=== PATIENT | female | born 1935 | race Caucasian/White ===

== ENCOUNTER 2020-03-02 02:41 | Observation (INO) | payer MEDICARE, SELFPAY ==
[2020-03-02] VITALS (16 sets, daily range): BP systolic 125–169; BP diastolic 51–93; PULSE 88–111; RESP 14–18; TEMP 36.3–37; O2SAT 95–100; BMI 15.1
--- NOTE | ~2020-03-02 | CT_ITS ---
EXAMINATION: CTA chest PE protocol DATE: 03/02/2020 11:48 LEATHER LEVELER INDICATION: Chest pain TECHNIQUE: Computed tomographic angiography (CTA) of the chest was performed with 100 mL Omnipaque-35 0 intravenous contrast. The dose-length product was 138.31 mGy-cm. Maximum intensity projection 3D-re constructions of the aorta and other arteries were constructed by the technologist on a separate work station. Automated exposure control and iterative reconstruction technique were employed. COMPARISON: Chest x-ray dated 03/02/2020. FINDINGS: Study is technically adequate without evidence for pulmonary embolism. Mildly prominent pul monary arteries. There is atherosclerosis and ectasia of the thoracic aorta without aneurysm or disse ction. There is coronary atherosclerosis. There is a bovine aortic arch. No significant pleural or pe ricardial effusion. No thoracic lymphadenopathy. No endobronchial lesions. No focal airspace consolidation. There is biba silar dependent atelectasis. There are advanced degenerative changes of the thoracic and upper lumbar spine. There is a chronic wedge compression fracture of T12 with erosive change anterior endplate of T12 which may be secondary to degenerative change, although sequela of osteomyelitis-discitis not ex cluded. IMPRESSION: 1. No acute cardiopulmonary disease. No evidence for pulmonary embolism. 2: Chronic wedge compression fracture of T12 with erosive changes at the inferior endplate which may be secondary degenerative change or sequela of previous osteomyelitis-discitis. There is retropulsion of the inferior endplate causing moderate central canal stenosis at this level. Reviewed, dictated and finalized at location A. HER LEVELER IMPRESSION: 1. No acute cardiopulmonary disease. No evidence for pulmonary embolism. 2: Chronic wedge compression fracture of T12 with erosive changes at the inferi or endplate which may be secondary degenerative change or sequela of previous o steomyelitis-discitis. There is retropulsion of the inferior endplate causing m oderate central canal stenosis at this level.
--- NOTE | ~2020-03-02 | XR_ITS ---
XR chest 2V 03/02/2020 03:09 Indication: Chest pain Procedure: AP and lateral views of the chest Comparison: No prior studies for comparison. Findings: Heart size upper normal. There is prominence of the aortic arch. Recommend correlation with CT. There is a burst fracture of T12, likely chronic. No focal air space disease, pulmonary edema, p leural effusion or suspected pneumothorax. Impression: 1: No acute cardiopulmonary disease. 2: Prominence of the aortic arch. Correlation with CT recommended. 2: T12 burst fracture, likely chronic. Reviewed, dictated and finalized at location A. LEAD Impression: 1: No acute cardiopulmonary disease. 2: Prominence of the aortic arch. Correlation with CT recommended. 2: T12 burst fracture, likely chronic.
--- NOTE | 2020-03-02 02:47 | ECG_ITS ---
Measurements Intervals [place] Rate: 88 P: 75 AL: 105 QRS: 69 QRSD: 106 T: 51 QT: 372 QTc: 452 Interpretive Statements SINUS RHYTHM WITH SHORT AL INTERVAL POSSIBLE LEFT ATRIAL ENLARGEMENT INCOMPLETE RIGHT BUNDLE BRANCH BLOCK BASELINE ARTIFACT- I, III, AVL, V3 BORDERLINE ECG Electronically Signed On 03-02-2020 7:28:53 LADLE LINER by Rahul Pandya D.O.
--- NOTE | 2020-03-02 02:55 | ED.CHESTPAIN ---
HPI - Chest Pain General Chief Complaint: Chest Pain Stated Complaint: CP Source: RN notes reviewed History of Present Illness HPI narrative: Patient presents emergency department from home via EMS for chest pain. Patient states she awoke this evening prior to arrival with pain in the midsternal chest. Pain is described as aching in nature and is worse with deep inspiration and movement of the torso she denies any known trauma or injury she denies any fevers or chills shortness of breath abdominal pain nausea vomiting or any other symptoms. She states she took no medication for the symptoms. She states she felt fine prior to going to sleep tonight Review of Systems Review of Systems: Narrative: Gen.: Denies fevers or chills ENT: Denies congestion Respiratory: Denies shortness of breath or cough CV: see HPI GI: Denies abdominal pain nausea, emesis or diarrhea Musculoskeletal: Denies back pain or muscle pain Neuro: Denies numbness, tingling, weakness or focal weakness Skin: Denies rash Except as documented, all other systems reviewed and negative [facility] Past Medical History Medical History (Updated 03/02/20 @ 06:48 by Bronson Diaz DO) Hypertension Social History Social History (Updated 03/02/20 @ 02:56 by Bronson Diaz DO) Smoking status: Never smoker Exam Narrative: Exam Narrative: APPEARANCE: No acute distress, nontoxic, resting in bed EYES: EOMI HEENT: Normocephalic, atraumatic, OMM RESPIRATORY: No respiratory distress Clear to auscultation bilaterally with no rhonchi wheezing or rales. CARDIOVASCULAR: Regular rate and rhythm without murmurs rubs or gallops. Chest: Tender palpation over the lower midsternal chest no swelling ecchymosis or rash ABDOMINAL: Soft, nontender, nondistended, no rebound or guarding Back: No thoracic or lumbar tenderness palpation MUSCULOSKELETAl: Moves all extremities. No clubbing, cyanosis or edema. NEURO: Awake and alert. Following commands, speech normal, no focal deficits SKIN:: Warm, dry. No rashes lesions or abrasions PSYCHIATRIC: Normal affect/mood, Course Course Emergency Course: Following CT scan I did discuss with the patient the erosion of the inferior endplate of T12 on exam the patient has no tenderness palpation she states she does have chronic pain in her lower back has been ongoing for numerous years she denies any acute change patient's only complaint is pain in the anterior chest Patient notes minimal change in pain with Tylenol and GI cocktail Dr. Shin presentation work-up agrees with admission at this time request consult to cardiology Discussed Dr Jimenez presentation work-up agrees with consult at this time Discussed with patient and family results of workup and diagnosis. Discussed need for admission. Patient and family understand and agree to current treatment plan Vital Signs Vital signs: Vital Signs Temperature 98 F 03/02/20 02:39 Pulse Rate 90 03/02/20 02:39 Respiratory Rate 18 03/02/20 02:39 Blood Pressure 146/76 H 03/02/20 02:39 Pulse Oximetry 95 03/02/20 02:39 Temperature 98 F 03/02/20 02:39 Pulse Rate 94 03/02/20 06:09 Respiratory Rate 18 03/02/20 06:09 Blood Pressure 138/74 03/02/20 06:09 Pulse Oximetry 98 03/02/20 06:09 MDM - Chest Pain Lab Data Result diagrams: 03/02/20 03:33 03/02/20 03:33 Labs: Lab Results 03/02/20 03/02/20 03/02/20 Range/Units 03:33 03:33 03:33 WBC 14.9 H (4.5-10.0) K/mm3 RBC 4.39 (4.2-5.4) M/mm3 Hgb 13.3 (12.0-15.0) g/dL Hct 39.6 (37.0-47.0) % MCV 90.2 (80-100) fl MCH 30.3 (26-34) pg MCHC 33.6 (32-36) g/dl RDW 12.8 (11.5-14.5) % Plt Count 307 (150-375) k/mm3 MPV 9.2 (7.4-10.4) fl Immature Gran % (Auto) 0.9 H (0-0.5) % Neut % (Auto) 85.2 H (45.5-73.1) % Lymph % (Auto) 5.3 L (18.3-44.2) % [place] % (Auto) 7.4 (2.6-8.5) % Eos % (Auto) 0.5 (0-4.4) % Baso % (Auto)
[2020-03-02 03:41] LABS: Basophils Absolute Auto 0.1 K/mm3 (0.0-0.1); Basophils Percent Auto 0.7 % (0.2-1.2); Eosinophils Absolute Auto 0.1 K/mm3 (0-0.3); Eosinophils Percent Auto 0.5 % (0-4.4); Hematocrit 39.6 % (37.0-47.0); Hemoglobin 13.3 g/dL (12.0-15.0); Immature Granulocyte Absolute 0.13 K/mm3 (0.00-0.031); Immature Granulocyte Percent A 0.9 % (0-0.5); Lymphocytes Absolute Auto 0.78 K/mm3 (0.9-3.2); Lymphocytes Percent Auto 5.3 % (18.3-44.2); Mean Corpuscular HGB Conc 33.6 g/dl (32-36); Mean Corpuscular Hemoglobin 30.3 pg (26-34); Mean Corpuscular Volume 90.2 fl (80-100); Mean Platelet Volume 9.2 fl (7.4-10.4); Monocytes Absolute Auto 1.1 K/mm3 (0.1-0.6); Monocytes Percent Auto 7.4 % (2.6-8.5); Neutrophils Absolute Auto 12.7 K/mm3 (1.3-6.7); Neutrophils Percent Auto 85.2 % (45.5-73.1); Platelet Count Result 307 k/mm3 (150-375); Red Blood Count 4.39 M/mm3 (4.2-5.4); Red Cell Distribution Width 12.8 % (11.5-14.5); White Blood Count 14.9 K/mm3 (4.5-10.0)
[2020-03-02 03:53] LABS: Alanine Aminotransferase 22 U/L (4-35); Alkaline Phosphatase 54 U/L (38-126); Aspartate Amino Transferase 51 U/L (14-36); Bilirubin,Total 0.4 mg/dL (0.2-1.3); Lipase 128 U/L (23-300)
[2020-03-02 03:56] LABS: INR 1.1; Prothrombin Time 14.7 Seconds (11.1-14.7)
[2020-03-02 03:57] LABS: Partial Thromboplastin Time 31.5 SECONDS (22.3-36.8)
[2020-03-02 03:59] LABS: Anion Gap 8 mmol/L (8-16); Blood Urea Nitrogen 18 mg/dL (7-17); Calcium 8.9 mg/dL (8.4-10.2); Carbon Dioxide 29 mmol/L (22-30); Chloride 97 mmol/L (98-107); Estimated CRCL calculation 31 ml/min; Estimated Glomerular Filt Rate > 60; Glucose 105 mg/dL (65-105); Potassium 3.8 mmol/L (3.4-5.0); Sodium 134 mmol/L (137-145)
[2020-03-02 04:11] LABS: Troponin I < 0.012 ng/mL (0.000-0.034)
--- NOTE | 2020-03-02 04:59 | PC.NURSE ---
Patient to CT
[2020-03-02 06:37] LABS: Troponin I < 0.012 ng/mL (0.000-0.034)
--- NOTE | 2020-03-02 08:33 | ADMGEN ---
This patient, Janice Sanchez, was admitted to IMU Room 205-02. Patient/family oriented to hospital policies and general routines including ID bracelet, bed and alarms, visiting hours, pain management, procedures, bathroom and other care routines, personal items, smoking policy, room service/diet, and visiting hours. Information on how to activate the Rapid Response Team has been discussed. Patient/Family are encouraged to report perceived risks to care and to ask questions if they do not understand what they are told or what they should do.
[2020-03-02 09:24] LABS: Troponin I < 0.012 ng/mL (0.000-0.034)
--- NOTE | 2020-03-02 11:59 | PM.CNCAR ---
Assessment and Plan Assessment and plan (1) Atypical chest pain: Code(s): R07.89 - Other chest pain Status: Acute Assessment and Plan: Her chest pain is pleuritic and reproducible. Very atypical for angina besides trop negative X 3 and her EKG shows no ischemic changes Unclear etiology of chest pain but it could be musculoskeletal. T12 fracture was reported on Xray but appears old. Also AST was elevated so may consider further eval of Gallbladder disease as potential cause of symptoms She had near syncopal episode which probably was vasovagal due to pain but I would go ahead and order 2D echo to rule out structural heart disease in the light of chest pain and near syncope (2) Hypertension: Code(s): I10 - Essential (primary) hypertension Status: Acute Assessment and Plan: Resume Lisinopril (3) Near syncope: Code(s): R55 - Syncope and collapse Status: Acute Assessment and Plan: Likely vasovagal Continue to monitor on tele Check 2D echo History of Present Illness History of Present Illness Consult date/time: 03/02/20 11:59 85 y/o female, well preserved mentally and physically with no known cardiac history and medical history of HTN and arthritis who presents with chest pain She woke up around 2:30 in am to use the bathroom and noted chest pain at the center of chest with no radiation that was worse with deep breathing and moving. By the time she got to the bathroom her pain became more severe and it appears she had what sound like vagal reaction (developed diaphoresis and became dizzy).She felt that she will almost pass out but she did not. It took her ~ 40 minutes to go back to bedroom to get her cellphone and call family who called ambulance. She feels better overall but she has to breath shallow and has to stay still so she does not get the chest pain. When I pressed on her chest wall it was clearly tender to touch. Trop negative X3. EKG shows sinus rhythm and no ST changes. Her labs are notable for mildly elevated AST otherwise unremarkable Chest Xray shows no acute findings. Had old T12 fracture. She had CT angiogram of chest, report is pending but on my personal review no obvious PE She moved to the area about 2 years ago after . She lives by her self but her daughter lives few blocks away. Her only medication at home is Lisinopril. Also takes eye drops. Never smoker Reason For Visit: Chest pain Review of Systems Review of Systems: All systems reviewed & are unremarkable except as noted in HPI and below Constitutional: Constitutional: Denies fatigue and Denies headache(s) Eyes: Eyes: Denies blurry vision ENT: Reports Normal hearing present and Denies headache(s) Cardiovascular: Cardiovascular: Denies chest pain, Denies diaphoresis, Denies pedal edema, Denies leg edema, Denies lightheadedness, Denies palpitations and Denies dyspnea Respiratory: Respiratory: Denies cough and Denies dyspnea Gastrointestinal: Gastrointestinal: Denies abdominal pain Musculoskeletal: Musculoskeletal: Denies back pain Neurologic: Reports Normal hearing present and Denies headache(s) Psychiatric: Psychiatric: Denies anxiety Endocrine: Endocrine: Denies fatigue and Denies palpitations PMFSH Past Medical History Medical History (Updated 03/02/20 @ 12:18 by Annalise Winston MD) Hypertension Social History Social History (Updated 03/02/20 @ 02:56 by Bronson Diaz DO) Smoking status: Never smoker Alcohol intake: never Substance use: never Gender identity (if verbalized by the patient): Female Meds Home Medications and Allergies Home Medications Medication Instructions Recorded Confirmed Type cyclosporine [Restasis] 1 drp OPHTHALMIC (EYE) Q12H 03/02/20 03/02/20 History lisinopril 20 mg PO DAILY 03/02/20 03/02/20 History multivit with min-folic acid 1 tablet PO DAILY 03/02/20 03/02/20 History [Adult One Daily Mult
--- NOTE | 2020-03-02 12:18 | ECHO_ITS ---
Patient Info Name: Janice Sanchez Age: 85 years : 1935 Gender: Female Ht: 66 in Wt: 93 lbs BSA: 1.38 m2 HR: 91 bpm BP: 167 / 75 mmHg Technical Quality: Good Exam Date: 03/02/2020 1:28 PM Exam Location: [facility] Patient Status: Inpatient Admit Date: 03/02/2020 Staff Ordering Physician: Annalise Winston MD (vicky/marilee) Helix Coil Winder: Theresa Polanco RDCS Attending Provider: Sadie Clark PA-C Exam Type: CA echo doppler color flow Study Info Complete two-dimensional, color flow and Doppler transthoracic echocardiogram is performed. Summary 1. Complete two-dimensional, color flow and Doppler transthoracic echocardiogram is performed. 2. Left ventricular chamber dimension is normal. 3. Left ventricular systolic function is normal, estimated at 65-70%. 4. Right atrial chamber dimension is mildly enlarged. 5. The aortic valve is not well visualized but appears likely trileaflet. 6. There is trace aortic valve regurgitation. 7. There is no aortic valve stenosis. 8. The mitral valve has mildly calcified leaflets. 9. There is mild to moderate mitral valve regurgitation. 10. Mild mitral annular calcification. 11. There is moderate tricuspid valve regurgitation. 12. Mild pulmonary hypertension, estimated pulmonary arterial systolic pressure is 40 mmHg. 13. Normal inferior vena cava with >50% collapse upon inspiration. 14. There is no pericardial effusion. Left Ventricle Left ventricular chamber dimension is normal. Left ventricular systolic function is normal, estimated at 65-70%. There is no increased left ventricular wall thickness. Left ventricular septal wall motion is normal. The left ventricular diastolic function is grade I diastolic dysfunction. There is discrete upper septal thickness. Right Ventricle Right ventricular chamber dimension is normal. Right ventricular systolic function is normal. Left Atria Left atrial chamber dimension is normal. Right Atria Right atrial chamber dimension is mildly enlarged. Aortic Valve The aortic valve is not well visualized but appears likely trileaflet. There is mild aortic valve sclerosis. There is no aortic valve stenosis. There is trace aortic valve regurgitation. Pulmonic Valve The pulmonic valve is normal. There is no pulmonic valve stenosis. There is no pulmonic regurgitation. Mitral Valve The mitral valve has mildly calcified leaflets. There is no mitral valve stenosis. There is mild to moderate mitral valve regurgitation. Mild mitral annular calcification. Tricuspid Valve The tricuspid valve leaflets are normal. There is no significant tricuspid valve stenosis. There is moderate tricuspid valve regurgitation. Mild pulmonary hypertension, estimated pulmonary arterial systolic pressure is 40 mmHg. Pericardium/Pleural The pericardium appears normal. There is no pericardial effusion. Inferior Vena Cava Normal inferior vena cava with >50% collapse upon inspiration. Aorta The aortic root size at the sinus of Valsalva is normal. The prox ascending aorta size is normal. Left Ventricular Outflow Tract Name Value Normal LVOT 2D LVOT Diameter 1.5 cm LVOT Doppler -----
[2020-03-02] MEDS: lisinopriL 20 MG TABLET PO (12:39)
[2020-03-02] MEDS: ACETAMINOPHEN 325 MG TABLET 650 MG PO (12:39)
[2020-03-02] MEDS: cycloSPORINE 0.4 ML OPHTH SOLUTION 1 DROP EACH EYE ×2 (12:40→21:51)
--- NOTE | 2020-03-02 13:00 | PCPTNOTE ---
attempted therapy,but pt eating then to have a US test.
--- NOTE | 2020-03-02 13:56 | PCPTNOTE ---
attempted PT eval this afternoon, but pt was still in US test.
--- NOTE | 2020-03-02 14:50 | PM.IMHP ---
H&P: HPI History of Present Illness Date/Time: 03/02/20 14:50 Chief Complaint: Chest pain Narrative: Janice Sanchez is a 85 year old female with history of hypertension, GERD, glaucoma, who presented to the emergency room with substernal chest pain. Patient states last night she was feeling well without any issues. She normally wakes up every 2-4 hours to walk around, use the restroom, and take Aleve for her chronic arthritis pain. She woke up at 12:10 a.m. this morning to go to the bathroom when she noticed a slight discomfort to her mid chest. When she stood up she also felt lightheaded, dizzy and slightly diaphoretic. She also reported increased substernal chest pain with any type of movement and walking. She was able to get to the bathroom and then decided to go into her kitchen to have something to eat thinking she had low blood sugar. On her way to the kitchen she continued to have the chest discomfort and fell into the Fridge. She did not injure any part of the body or hit her head. Then she continued to feel lightheaded with her chest pain reported as excruciating, pressure . She attempted to walk back into her bedroom to grab her phone to call her daughter but it took her about 45 minutes because of her increased pain and symptoms with movement. She denies any syncope, shortness of breath, cough, fever, chills, nausea, vomiting, abdominal pain, belching, diarrhea, leg swelling, calf pain, urinary symptoms, loss of taste or smell, or any other abnormal symptoms. She still reports some substernal chest discomfort and worse with any type of movement. Denies any pain with taking a deep breath, radiation of pain, she does have an exacerbation of pain with pressing on her chest wall. She does report having to fill up her humidifiers throughout her house daily and can become heavy, but denies any other strenuous activity or lifting recently. Denies any sick contacts. Initial vitals showed afebrile, heart rate 90, respiratory rate 18, blood pressure 146/76, oxygen saturation 95% on room air. Initial labs showed leukocytosis at 14,900, with a left shift, normal coag panel normal CMP except for slight hyponatremia at 134 and elevated BUN at 18. Negative troponins x3. Normal lipase. Cardiopulmonary disease, prominence of aortic arch and recommended a CT scan. CTA of her chest showed no PE, no acute cardiopulmonary disease, but did show chronic wedge compression fracture of T12 with erosive changes at the inferior endplate which may be secondary degenerative change or sequela of previous osteomyelitis-discitis. There is retropulsion of the inferior endplate causing moderate central canal stenosis at this level. The patient was admitted into the hospital with a cardiology evaluation and workup for chest pain. Code status: DNR [id number]: Daughter Chary Sanchez Review of Systems Review of Systems: All systems reviewed & are unremarkable except as noted in HPI and below PMFSH Past Medical History Medical History Glaucoma Hypertension Sciatica Surgical History Surgical History History of appendectomy History of tonsillectomy Social History Social History (Updated 03/02/20 @ 17:07 by Sadie Clark PA-C) Smoking status: Never smoker Alcohol intake: never Substance use: never Living arrangements: alone Additional living arrangements comments: She lives alone but her daughter lives 4 houses away and checks on her regularly. Occupation/Education: retired Gender identity (if verbalized by the patient): Female Meds Home Medications and Allergies Home Medications Medication Instructions Recorded Confirmed Type cyclosporine [Restasis] 1 drp OPHTHALMIC (EYE) Q12H 03/02/20 03/02/20 History lisinopril 20 mg PO DAILY 03/02/20 03/02/20 History multivit with min-folic acid 1 tablet PO DAILY
[2020-03-02] MEDS: IBUPROFEN 400 MG TABLET PO (17:30)
[2020-03-02] MEDS: LACTATED RINGERS 1,000 ML 100 ML IV CONT (17:30)
[2020-03-02] MEDS: PANTOPRAZOLE 40 MG TABLET PO (21:37)
[2020-03-02] MEDS: TIZANIDINE HCL 1 MG TABLET PO (22:11)
[2020-03-03] VITALS (10 sets, daily range): BP systolic 162–184; BP diastolic 82–91; PULSE 83–105; RESP 16–18; TEMP 36.1–36.9; O2SAT 96–100
[2020-03-03 05:28] LABS: Basophils Absolute Auto 0.1 K/mm3 (0.0-0.1); Basophils Percent Auto 0.5 % (0.2-1.2); Eosinophils Absolute Auto 0.3 K/mm3 (0-0.3); Eosinophils Percent Auto 2.5 % (0-4.4); Hemoglobin 13.5 g/dL (12.0-15.0); Immature Granulocyte Absolute 0.03 K/mm3 (0.00-0.031); Immature Granulocyte Percent A 0.3 % (0-0.5); Lymphocytes Absolute Auto 1.44 K/mm3 (0.9-3.2); Lymphocytes Percent Auto 13.6 % (18.3-44.2); Mean Corpuscular HGB Conc 33.8 g/dl (32-36); Mean Corpuscular Hemoglobin 29.7 pg (26-34); Mean Corpuscular Volume 87.9 fl (80-100); Mean Platelet Volume 9.9 fl (7.4-10.4); Monocytes Absolute Auto 1.4 K/mm3 (0.1-0.6); Monocytes Percent Auto 12.8 % (2.6-8.5); Neutrophils Absolute Auto 7.5 K/mm3 (1.3-6.7); Neutrophils Percent Auto 70.3 % (45.5-73.1); Platelet Count Result 312 k/mm3 (150-375); Red Blood Count 4.55 M/mm3 (4.2-5.4); White Blood Count 10.6 K/mm3 (4.5-10.0)
[2020-03-03 08:10] LABS: Anion Gap 8 mmol/L (8-16); Blood Urea Nitrogen 14 mg/dL (7-17); Calcium 8.9 mg/dL (8.4-10.2); Carbon Dioxide 30 mmol/L (22-30); Chloride 97 mmol/L (98-107); Estimated CRCL calculation 33 ml/min; Estimated Glomerular Filt Rate > 60; Glucose 100 mg/dL (65-105); Potassium 3.6 mmol/L (3.4-5.0); Sodium 135 mmol/L (137-145)
[2020-03-03] MEDS: IBUPROFEN 400 MG TABLET PO (09:13)
[2020-03-03] MEDS: lisinopriL 20 MG TABLET PO (09:14)
[2020-03-03] MEDS: PANTOPRAZOLE 40 MG TABLET PO (09:14)
[2020-03-03] MEDS: ACETAMINOPHEN 325 MG TABLET 650 MG PO (11:51)
[2020-03-03] MEDS: cycloSPORINE 0.4 ML OPHTH SOLUTION 1 DROP EACH EYE (11:52)
--- NOTE | 2020-03-03 12:34 | PM.PNCARD ---
Progress Note: A&P Assessment and Plan (1) Atypical chest pain: Code(s): R07.89 - Other chest pain Status: Acute Assessment and Plan: Her chest pain is pleuritic and reproducible. Very atypical for angina Trop negative X 3 and her EKG shows no ischemic changes 2D echo shows normal EF and no regional wall motion changes. 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 Chest pain is likely musculoskeletal and is improving. I instructed patient to use Tylenol and less ibuprofen with risk of ELTON, HTN, etc She is stable for discharge from cardiac standpoint Will follow up in 1-2 weeks. Patient will be called with appointment (2) Hypertension: Code(s): I10 - Essential (primary) hypertension Status: Acute Assessment and Plan: Resume Lisinopril Consider adding Metoprolol. She is reluctant to start new medicine and contribute elevated BP to stress from being admitted to the hospital. Will monitor (3) Near syncope: Code(s): R55 - Syncope and collapse Status: Acute Assessment and Plan: Likely vasovagal sinus rhythm and sinus tachycardia noted on tele Subjective Date/time seen: 03/03/20 12:34 Feels better today. Chest pain improved with alternating Tylenol and Ibuprofen. Denies dyspnea Review of Systems Review of Systems: All systems reviewed & are unremarkable except as noted in HPI and below Constitutional: Constitutional: Denies fatigue and Denies headache(s) Eyes: Eyes: Denies blurry vision ENT: Reports Normal hearing present and Denies headache(s) Cardiovascular: Cardiovascular: Denies chest pain, Denies diaphoresis, Denies pedal edema, Denies leg edema, Denies lightheadedness, Denies palpitations and Denies dyspnea Respiratory: Respiratory: Denies cough and Denies dyspnea Gastrointestinal: Gastrointestinal: Denies abdominal pain Musculoskeletal: Musculoskeletal: Denies back pain Neurologic: Reports Normal hearing present and Denies headache(s) Psychiatric: Psychiatric: Denies anxiety Endocrine: Endocrine: Denies fatigue and Denies palpitations Exam Const: General: no acute distress Eyes: Sclera: sclerae normal Neck: Neck: no JVD Carotids: no bruits Resp: Effort & Inspection: normal respiratory effort Auscultation: clear to auscultation bilaterally Cardio: Rate: regular rate and not tachycardic Rhythm: regular rhythm Heart sounds: no gallops, no murmurs and no rubs Skin: General skin exam: normal color Neuro: Cranial nerves: Yes Normal hearing present Speech: normal speech Extrem: General: normal to inspection and no edema Psych: Affect: normal affect Objective Data Vital Signs Vital Signs: Vital Signs - 24 hr 03/02/20 14:00 03/02/20 16:00 03/02/20 16:11 Temperature 36.3 C L Pulse Rate 111 H 91 Respiratory Rate Blood Pressure Pulse Oximetry 96 03/02/20 17:36 03/02/20 17:39 03/02/20 17:40 Temperature 36.3 C L Pulse Rate 97 Respiratory Rate 14 Blood Pressure 169/86 H 168/89 H 148/93 H Pulse Oximetry 100 03/02/20 18:00 03/02/20 19:51 03/02/20 20:00 Temperature 36.4 C Pulse Rate 101 H 101 H 100 Respiratory Rate 18 Blood Pressure 125/51 L Pulse Oximetry 98 98 03/02/20 22:00 03/03/20 00:00 03/03/20 02:00 Temperature Pulse Rate 90 98 93 Respiratory Rate Blood Pressure Pulse Oximetry 98 03/03/20 04:00 03/03/20 06:00 03/03/20 07:21 Temperature 36.9 C 36.4 C L Pulse Rate 83 87 91 Respiratory Rate 16 16 Blood Pressure 184/84 H 170/82 H Pulse Oximetry 100 98 03/03/20 08:00 03/03/20 08:30 03/03/20 11:42 Temperature 36.1 C L Pulse Rate 86 91 Respiratory Rate 18 Blood Pressure 162/91 H Pulse Oximetry 96 97 Intake/Output Intake/Output: Intake & Output 02/29/20 03/01/20 03/02/20 03/03/20 23:59 23:59 23:59 23:59 Intake Total 695 1350 Output Total 500 1800 Balance 195 -450 Meds/Results Med
--- NOTE | 2020-03-03 13:08 | PM.DS ---
DS: Admitting Diagnosis Admitting Diagnosis Admitting Diagnosis: Chest pain DS: Discharge Diagnosis Discharge Diagnosis (1) Atypical chest pain: Code(s): R07.89 - Other chest pain Status: Acute Assessment and Plan: Atypical chest pain that is reproducible. Cardiology was consulted who recommend ordering an echocardiogram for near syncope. Otherwise telemetry shows normal sinus rhythm with a heart rate of 87 beats per minute with a few episodes of sinus tachycardia with a heart rate in the 140s while she was walking in the room. Troponins were negative x3. Most likely secondary to costochondritis due to viral illness verses heavy lifting which she has been doing to fill her humidifiers at home. Cardiology evaluated the patient ordered echocardiogram which showed normal EF 65-70%, mild pulmonary hypertension, mild valvular disease. Telemetry showed normal sinus rhythm with a few episodes of atrial tachycardia when she would get up and walk around. Cardiology discussed with the patient about possibly starting metoprolol for better heart rate control, but the patient was we are about starting any medication at this time. She will follow-up with cardiology in 1-2 weeks outpatient recommended checking her blood pressure. She understands and agrees the plan all questions answered. (2) Near syncope: Code(s): R55 - Syncope and collapse Status: Acute Assessment and Plan: Due to near syncopal episode at home ordered echocardiogram, and give 1 L of IV fluids for some dehydration. Continue monitoring. Patient denies any more lightheadedness after getting some IV fluids. Echo showed no acute abnormality. She is feeling much better and stable for discharge at this time. (3) Hypertension: Code(s): I10 - Essential (primary) hypertension Status: Acute Assessment and Plan: Blood pressure this morning was 170/82. Elevate but the patient thinks is because she is in the hospital. Continue her home medication of lisinopril. Patient is very about any adjustments to her medications at this time. Told her to check her blood pressure twice daily follow-up with cardiology as an outpatient. (4) Glaucoma: Code(s): H40.9 - Unspecified glaucoma Status: Acute Assessment and Plan: Continue her eye drops q.12 hours. DS: Summary Hospital Course Hospital Course: Janice Sanchez is a 85 year old female with history of hypertension, GERD, glaucoma, who presented to the emergency room with substernal chest pain. Initial vitals showed afebrile, heart rate 90, respiratory rate 18, blood pressure 146/76, oxygen saturation 95% on room air. Initial labs showed leukocytosis at 14,900, with a left shift, normal coag panel normal CMP except for slight hyponatremia at 134 and elevated BUN at 18. Negative troponins x3. Normal lipase. Cardiopulmonary disease, prominence of aortic arch and recommended a CT scan. CTA of her chest showed no PE, no acute cardiopulmonary disease, but did show chronic wedge compression fracture of T12 with erosive changes at the inferior endplate which may be secondary degenerative change or sequela of previous osteomyelitis-discitis. There is retropulsion of the inferior endplate causing moderate central canal stenosis at this level. The patient was admitted into the hospital with a cardiology evaluation and workup for chest pain. Please see above under each diagnosis as a what transpired during her admission. Status at Discharge Cognitive/behavioral status at discharge: Stable, improved. Time Spent with Patient Time attestation: Total time spent providing and/or coordinating discharge services: 39 Time spent: Greater than 30 minutes
--- NOTE | 2020-03-03 16:12 | PCPTNOTE ---
patient discharged prior to being seen by PHYSICAL THERAPY
== END 2020-03-03 15:00 | disposition home or self-care (01) ==
LOC: ANHED 06:48 → ANHIMU 07:42
PROVIDERS: Admitting Provider Family Medicine; Emergency Provider Emergency Medicine; PCP Family Medicine; Visit Provider Family Medicine
DX: R07.89 Other chest pain (principal); I10 Essential (primary) hypertension; R55 Syncope and collapse; K21.9 Gastro-esophageal reflux disease without esophagitis; H40.9 Unspecified glaucoma
CPT/HCPCS: 36415; 71046; 71275; 80048; 80076; 83690; 84484; 85025; 85610; 85730; 93005; 93306; 96361; 96374; 97165; 99285; A9270; G0378; J0131; J7120; Q9967